=== PATIENT | male | born 1960 | race Hispanic/Latino ===

== ENCOUNTER 2017-02-12 16:38 | Emergency (ER) | payer BC ==
[~2017-02-12] VITALS: Ht 172.7 cm; Wt 90.0 kg
[~2017-02-12 16:38] MED LIST: ADVIL200 MG OR; ALEVE220 MG PO; CLONIDINE0.1 MG PO; DIOVAN40 MG PO; FLEXERIL OR; IBUPROFEN800 MG OR; LORTAB 5 OR; LORTAB 7.5 OR; MULTI VIT OR; MULTI VIT PO; PRILOSEC10 MG OR; PRILOSEC20 MG/CAP PO; TYLENOL500 MG OR; ULTRAM50 MG OR; ZITHROMAX500 MG OR
[2017-02-12] MEDS ORDERED: MACROBID100 MG PO (17:46)
[2017-02-12] MEDS ORDERED: PAIN RELIEF325 MG PO (17:46)
[2017-02-12] MEDS ORDERED: PRENATAL MULTI1 CAP PO (17:46)
[2017-02-12] MEDS ORDERED: TRAMADOL HYDROC50 MG PO (17:51)
[2017-02-12] MEDS ORDERED: EC-NAPROSYN500 MG PO (17:51)
[2017-02-12] MEDS ORDERED: FLEXERIL PO (17:51)
[2017-02-12 18:00] VITALS: BP 149/74
== END 2017-02-12 18:00 | disposition home or self-care (01) | DRG 552 ==
LOC: ED 16:38
DX: M54.5 Low back pain (principal); N20.0 Calculus of kidney; X50.0XXA Overexertion from strenuous movement or load, initial encounter; Y93.89 Activity, other specified; Y92.89 Other specified places as the place of occurrence of the external cause

== ENCOUNTER 2017-10-12 17:55 | Emergency (ER) | payer BC ==
[~2017-10-12] VITALS: Ht 172.7 cm; Wt 90.0 kg
[~2017-10-12 17:55] MED LIST changes: +EC-NAPROSYN500 MG PO; +FLEXERIL PO; +MACROBID100 MG PO; +PAIN RELIEF325 MG PO; +PRENATAL MULTI1 CAP PO; +TRAMADOL HYDROC50 MG PO
[2017-10-12] MEDS ORDERED: HYZAAR1 TA2 PO (18:27)
[2017-10-12] MEDS ORDERED: DILTIAZEM90 MG PO (18:27)
[2017-10-12] MEDS ORDERED: FLEXERIL PO (18:43)
[2017-10-12] MEDS ORDERED: EC-NAPROSYN500 MG PO (18:43)
[2017-10-12] MEDS ORDERED: TRAMADOL HYDROC50 MG PO (18:43)
[2017-10-12 19:00] VITALS: BP 135/77
== END 2017-10-12 19:00 | disposition home or self-care (01) | DRG 552 ==
LOC: ED 17:55
DX: M54.42 Lumbago with sciatica, left side (principal); R20.2 Paresthesia of skin

== ENCOUNTER 2017-11-12 11:22 | Emergency (ER) | payer OTHER, BC ==
[~2017-11-12] VITALS: Ht 172.7 cm; Wt 92.0 kg
[~2017-11-12 11:22] MED LIST changes: +DILTIAZEM90 MG PO; +HYZAAR1 TA2 PO
[2017-11-12] MEDS ORDERED: MOTRIN400 MG PO (15:09)
[2017-11-12 15:15] VITALS: BP 130/80
== END 2017-11-12 15:15 | disposition home or self-care (01) | DRG 556 ==
LOC: ED 11:22
DX: M25.511 Pain in right shoulder (principal); M25.521 Pain in right elbow; M79.652 Pain in left thigh; I10 Essential (primary) hypertension; V49.40XA Driver injured in collision with unspecified motor vehicles in traffic accident, initial encounter

== ENCOUNTER 2019-05-25 09:39 | Emergency (ER) | payer BC ==
[~2019-05-25] VITALS: Ht 172.7 cm; Wt 90.0 kg
[~2019-05-25 09:39] MED LIST changes: +DILTIAZEM90 M1 PO; +MOTRIN400 MG PO
[2019-05-25 10:44] LABS: HEMATOCRIT 41.6 % (39.0-50.0); HEMOGLOBIN 14.4 g/dl (14.0-18.0); IMMATURE GRANULOCYTES 0.5 % (0.0-5.0); MEAN CELL VOLUME 84.2 fL CALC (80.0-100.0); MEAN CORPUSCULAR HGB 29.1 pG CALC (26.0-32.0); MEAN CORPUSCULAR HGB CONC 34.6 g/L CALC (32.0-36.0); NEUT# 4.24 thou/uL (1.82-7.42); RED BLOOD COUNT 4.94 mill/uL (4.70-6.10); RED CELL DISTRI WIDTH 12.6 % (11.5-15.5)
[2019-05-25 11:06] LABS: ALBUMIN 4.4 g/dL (3.2-5.0); ALKALINE PHOSPHATASE 80 u/l (38-126); ANION GAP 16 (6-22 (CALC)); BILIRUBIN, TOTAL 1.1 mg/dL (0.0-1.4); BUN 10 mg/dL (9-20); BUN/CREATININE RATIO 13 (12-20 (CALC)); CARBON DIOXIDE 26 mmol/l (22-30); CHLORIDE 102 mmol/l (95-108); CREATININE 0.8 mg/dL (0.7-1.3); GFR > 60 ML/MIN (>=60 (CALC)); GFR FOR AFR.AMER. > 60 ML/MIN (>=60 (CALC)); SGOT/AST 40 u/l (17-59); SODIUM 140 mmol/l (137-146); TOTAL PROTEIN 7.4 g/dL (6.3-8.2)
[2019-05-25 12:53] VITALS: BP 130/92
== END 2019-05-25 12:54 | disposition home or self-care (01) | DRG 103 ==
LOC: ED 09:39
PROVIDERS: Family Medicine
DX: G43.909 Migraine, unspecified, not intractable, without status migrainosus (principal); I10 Essential (primary) hypertension

== ENCOUNTER 2020-03-24 15:18 | Emergency (ER) | payer BC ==
[2020-03-24] MEDS ORDERED: FLEXERIL PO (20:48)
[2020-03-24] MEDS ORDERED: ULTRAM50 M1 PO (20:48)
[2020-03-24 20:49] VITALS: BP 161/93
== END 2020-03-24 20:49 | disposition home or self-care (01) | DRG 552 ==
LOC: ED 15:18
DX: M54.41 Lumbago with sciatica, right side (principal); M47.816 Spondylosis without myelopathy or radiculopathy, lumbar region; I10 Essential (primary) hypertension

== ENCOUNTER 2022-05-12 19:40 | Emergency (ER) | payer SELFPAY ==
[~2022-05-12] VITALS: Ht 172.7 cm; Wt 90.0 kg
[2022-05-12] VITALS (8 sets, daily range): BP systolic 111–143; BP diastolic 79–97
[~2022-05-12 19:40] MED LIST changes: +ULTRAM50 M1 PO
[2022-05-12] MEDS ORDERED: CENTRUM SILVER1 TA2 PO (20:13)
[2022-05-12] MEDS ORDERED: LEG CRAMPS1 TAB PO (20:14)
[2022-05-12 20:34] LABS: HEMATOCRIT 38.9 % (39.0-50.0); HEMOGLOBIN 13.1 g/dl (14.0-18.0); IMMATURE GRANULOCYTES 0.1 % (0.0-5.0); MEAN CELL VOLUME 87.4 fL CALC (80.0-100.0); MEAN CORPUSCULAR HGB 29.4 pG CALC (26.0-32.0); MEAN CORPUSCULAR HGB CONC 33.7 g/dL CAL (32.0-36.0); NEUT# 5.49 thou/uL (1.82-7.42); RED BLOOD COUNT 4.45 mill/uL (4.70-6.10); RED CELL DISTRI WIDTH 13.3 % (11.5-15.5)
[2022-05-12 20:51] LABS: ALBUMIN 4.3 g/dL (3.2-5.0); MAGNESIUM 1.9 mg/dL (1.6-2.3); POTASSIUM 3.4 mmol/l (3.5-5.1); TOTAL PROTEIN 7.5 g/dL (6.3-8.2)
[2022-05-12 20:52] LABS: BILIRUBIN, TOTAL 0.5 mg/dL (0.0-1.4); CREATININE 2.5 mg/dL (0.7-1.3)
[2022-05-12 23:03] LABS: URINE BILIRUBIN - DIPSTICK NEGATIVE (NEGATIVE); URINE BLOOD DIPSTICK MODERATE (NEGATIVE); URINE COLOR YELLOW; URINE GLUCOSE - DIPSTICK NEGATIVE (NEGATIVE); URINE KETONE NEGATIVE (NEGATIVE); URINE LEUK ESTERASE NEGATIVE (NEGATIVE); URINE PROTEIN - DIPSTICK NEGATIVE (NEG-TRACE); URINE SPECIFIC GRAVITY 1.025; URINE UROBILINOGEN - DIPSTICK 0.2 E.U./dL (0.2)
[2022-05-12 23:08] LABS: URINE NITRITE - DIPSTICK NEGATIVE (Negative)
[2022-05-12 23:18] LABS: URINE SQUAMOUS EPITHELIAL CELL FEW EPI/hpf (0-FEW); URINE WBC 0-2 WBC/hpf (0-5)
== END 2022-05-12 23:45 | disposition home or self-care (01) | DRG 641 ==
LOC: ED 19:40
PROVIDERS: Family Medicine
DX: E86.0 Dehydration (principal); N17.9 Acute kidney failure, unspecified; I10 Essential (primary) hypertension; X30.XXXA Exposure to excessive natural heat, initial encounter; Y99.0 Civilian activity done for income or pay; Z20.822 Contact with and (suspected) exposure to COVID-19